=== PATIENT | male | born 1965 | race Caucasian/White ===

== ENCOUNTER 2016-05-25 10:56 | Day surgery (SDC) | payer OTHER ==
[2016-05-22 13:50] VITALS: BMI 31.1
[~2016-05-25 10:56] MED LIST: LACTATED RINGERS 1,000 ML IV SCH
[2016-05-25 11:16] VITALS: RESP 16; TEMP 98.9
[2016-05-25] MEDS ORDERED: LIDOCAINE 1% 20 ML VIAL (10MG/ML) FOR IV START SQ ONE (11:19)
[2016-05-25] MEDS ORDERED: PROPOFOL 10 MG/ML 20 ML VIAL IV ONE (12:34)
--- NOTE | 2016-05-25 12:54 | P.PCN ---
Date of Procedure: 05/25/16 Procedure(s) Performed: Brief history: Patient is a pleasant 51-year-old white male, scheduled for an elective upper endoscopy as well as colonoscopy as a part of evaluation of abdominal pain, postprandial diarrhea, abdominal bloating and occasional heartburn for the last 2-3 months duration. He denies any weight loss. Denies any rectal bleeding. Procedure performed: Esophagogastroduodenoscopy with biopsy Colonoscopy with biopsy Preoperative diagnosis: Abdominal pain, abdominal bloating Postprandial diarrhea Anesthesia: [facility] [place] Procedure: After informed consent was obtained from the patient was brought into the endoscopy unit and IV conscious sedation was administered by anesthesia under continuous monitoring. Initially upper endoscopy was done. The Olympus GF 160 video endoscope was inserted inserted into the mouth and esophagus intubated without any difficulty and was gradually advanced into the stomach and duodenum and carefully examined. The bulb and second part of the duodenum appeared normal. Biopsies were done from this area to rule out celiac disease. The scope was then withdrawn into the stomach adequately insufflated with air and upon careful examination the antrum had mild gastritis and biopsies were done from this area. The body, cardia and fundus appeared normal. The scope was then withdrawn into the esophagus. The GE junction was located at 40 cm to the incisors. there were 2 tongues of Anderson's appearing mucosa extending 5 m proximal to the GE junction and this was biopsied. Rest of the esophagus appeared normal. Patient tolerated the procedure well. At this time the patient continued to remain sedation. Initial digital rectal examination was normal. Olympus CF 160 video colonoscope was then inserted into the rectum and gradually advanced to the cecum without any difficulty. Careful examination was performed as the scope was gradually being withdrawn. The prep was excellent. The cecum, ascending colon, transverse colon, descending colon, sigmoid colon and rectum appeared normal. and biopsies were done from the ascending and descending colon to rule out microscopic/ collagenous colitis. Retroflexion was performed in the rectum and no lesions were noted. Patient tolerated the procedure well. Impression: 1. Upper endoscopy revealed mild antral gastritis and short segment Anderson's esophagus. 2. Colonoscopy was essentially within normal limits with no evidence of colitis or colorectal neoplasia. Recommendations: Findings of this examination were discussed with the patient as well as her family. He was advised to follow with the biopsy results. In the meantime he was told to use [id number] Imodium as needed for the postprandial diarrhea and abdominal discomfort. He can have a repeat screening colonoscopy in 10 years.
[2016-05-25 13:27] VITALS: BP 149/96; PULSE 72
== END 2016-05-25 13:36 | disposition home or self-care (01) ==
LOC: ORWHC2ENDO 10:56
PROVIDERS: ATTEND Internal Medicine Gastroenterology
DX: K21.0 Gastro-esophageal reflux disease with esophagitis (principal); K29.50 Unspecified chronic gastritis without bleeding; K59.00 Constipation, unspecified; I10 Essential (primary) hypertension; F17.200 Nicotine dependence, unspecified, uncomplicated; Z79.1 Long term (current) use of non-steroidal anti-inflammatories (NSAID); Z79.899 Other long term (current) drug therapy
CPT/HCPCS: 88305; 88342; 45380; 43239; J2704; 99153

== ENCOUNTER 2018-04-30 18:15 | Emergency (ER) | payer BC, OTHER ==
[2018-04-30] MEDS ORDERED: SODIUM CHLORIDE 0.9% 1,000 ML IV STA (19:03)
[2018-04-30] MEDS ORDERED: LORazepam 2 MG/ML INJ IV STA (19:03)
[2018-04-30] MEDS ORDERED: diphenhydrAMINE 50 MG/ML 1 ML VIAL IVP STA (19:04)
[2018-04-30 19:17] LABS: Basophils % (A) 1 %; Eosinophils # (A) 0.2 k/uL (0-0.7); Eosinophils % (A) 4 %; HCT 49.8 % (39.0-53.0); HGB 16.7 gm/dL (13.0-17.5); Lymphocytes # (A) 1.4 k/uL (1.0-4.8); Lymphocytes % (A) 24 %; MCH 32.6 pg (25.0-35.0); MCHC 33.6 g/dL (31.0-37.0); MCV 97.2 fL (80.0-100.0); Mean Platelet Volume 7.1; Monocytes # (A) 0.5 k/uL (0-1.0); Monocytes % (A) 8 %; Neutrophils # (A) 3.6 k/uL (1.3-7.7); Neutrophils % (A) 61 %; Platelet Count 236 k/uL (150-450); RBC 5.13 m/uL (4.30-5.90); RDW 12.6 % (11.5-15.5); WBC 5.9 k/uL (3.8-10.6)
[2018-04-30 19:25] LABS: INR 0.9 (<1.2); Partial Thromboplastin Time 22.8 sec (22.0-30.0); Prothrombin Time 9.8 sec (9.0-12.0)
[2018-04-30 19:44] LABS: ALT 53 U/L (21-72); AST 58 U/L (17-59); Albumin 4.6 g/dL (3.5-5.0); Alkaline Phosphatase 78 U/L (38-126); Amylase 44 U/L (30-110); Anion Gap 16 mmol/L; Blood Urea Nitrogen 25 mg/dL (9-20); Calcium 9.9 mg/dL (8.4-10.2); Carbon Dioxide 25 mmol/L (22-30); Chloride 99 mmol/L (98-107); Glucose 84 mg/dL (74-99); Lipase 56 U/L (23-300); Potassium 3.8 mmol/L (3.5-5.1); Sodium 140 mmol/L (137-145); Total Protein 7.7 g/dL (6.3-8.2)
[2018-04-30 20:12] VITALS: RESP 16
--- NOTE | 2018-04-30 20:36 | XR ---
EXAMINATION TYPE: XR chest 2V DATE OF EXAM: 04/30/2018 COMPARISON: NONE HISTORY: Short of breath TECHNIQUE: Frontal and lateral views of the chest are obtained. FINDINGS: Heart and mediastinum are normal. Lungs are clear. Diaphragm is normal. There are chest le ads. Bony thorax appears normal. IMPRESSION: Normal chest
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
[2018-04-30 21:00] LABS: Appearance,Urine Clear (Clear); Bilirubin,Urine Negative (Negative); Blood,Urine Negative (Negative); Color,Urine Yellow; Glucose,Urine (UA) Negative (Negative); Ketones,Urine Negative (Negative); Leukocyte Esterase,Urine Negative (Negative); Nitrite,Urine Negative (Negative); Protein,Urine Trace (Negative); Specific Gravity,Urine 1.013 (1.001-1.035); Urobilinogen,Urine <2.0 mg/dL (<2.0)
[2018-04-30 21:44] VITALS: BP 133/91; PULSE 90; TEMP 98.4
== END 2018-04-30 21:44 | disposition home or self-care (01) ==
LOC: EC 18:15
DX: R25.1 Tremor, unspecified (principal); T43.295A Adverse effect of other antidepressants, initial encounter; R06.02 Shortness of breath; K14.8 Other diseases of tongue; I10 Essential (primary) hypertension; F32.9 Major depressive disorder, single episode, unspecified; F17.200 Nicotine dependence, unspecified, uncomplicated; Z79.899 Other long term (current) drug therapy; Z91.013 Allergy to seafood
CPT/HCPCS: 99285; 96374; 96375; 96361; 36415; 80053; 82150; 83690; 84484; 85025; 85610; 85730; 81003; 71046; J2060; J1200

== ENCOUNTER → 2018-10-07 | Outpatient (CLI) | payer BC ==
--- NOTE | 2018-10-07 14:03 | MR ---
EXAMINATION TYPE: MR brain wo con DATE OF EXAM: 10/07/2018 COMPARISON: NONE HISTORY: Amnesia/memory impairment, recent fall injury hitting head per patient. TECHNIQUE: Multiplanar, multisequence imaging of the brain and brainstem is performed without IV cont rast. FINDINGS: Diffusion weighted images demonstrate no evidence of a recent infarct or other diffusion abnormality. There is no worrisome extraaxial fluid collection . There is mild ventricular sulcal prominence. Ther e are a few scattered tiny foci T2 hyperintensity seen throughout the white matter bilaterally. Appro ximately 10-13 scattered lesions are seen. Lesions are nonspecific in appearance and distribution. T2 Star weighted images show no suspicious intraparenchymal blood product. Midline structures demonstrate normal morphology. The craniocervical junction appears within normal limits. Normal vascular flow voids are present. There is mild mucosal thickening involving the inferi or frontal sinuses and mild/moderate mucosal thickening involving the ethmoid and maxillary sinuses b ilaterally, left greater than right. The globes are intact bilaterally. IMPRESSION: There is mild diffuse cerebral atrophy and chronic small vessel ischemic change along wit h chronic paranasal sinus disease.
== END | disposition home or self-care (01) ==
LOC: RADMRIMAIN 08:13
PROVIDERS: ATTEND Family Medicine
DX: G31.9 Degenerative disease of nervous system, unspecified (principal); I67.82 Cerebral ischemia
CPT/HCPCS: 70551

== ENCOUNTER → 2020-02-12 | Outpatient (CLI) | payer BC ==
[~2020-02-12] MED LIST changes: +IODINE/POTASS IOD (LUGOLS) BOTTLE TOPICAL ONE; -LACTATED RINGERS 1,000 ML IV SCH
--- NOTE | 2020-02-15 07:45 | NM ---
EXAMINATION TYPE: NM DatScan Brain SPECT DATE OF EXAM: 02/12/2020 COMPARISON: Correlation MRI 10/07/2018 HISTORY: 54-year-old male G20, Parkinson's disease, R25.9, R27.0 TECHNIQUE: 10 drops of Lugol's solution was administered 1 hour prior to injection as a thyroid bloc loren agent. After the administration of 4.33 mCi I-123 Ioflupane DaTscan. Images obtained 3 hours p ost injection. SPECT images of the brain were acquired with axial and coronal reconstructions. FINDINGS: There is a weak, comma-shaped appearance to the right corpus striatum and slight increase in backgrou nd activity. Satisfactory activity seen at the left corpus stratum. IMPRESSION: Slight reduction in activity within the right corpus striatum and slight increase in background activ ity. Findings may represent early changes in the setting of Parkinson's disease or a Parkinsonian syn drome.
== END | disposition home or self-care (01) ==
LOC: RADNMMAIN 10:58
PROVIDERS: ATTEND Psychiatry & Neurology Vascular Neurology
DX: R94.09 Abnormal results of other function studies of central nervous system (principal); G20 Parkinson's disease; R27.0 Ataxia, unspecified
CPT/HCPCS: 78803; A9584

== ENCOUNTER → 2021-10-27 | Outpatient (CLI) | payer BC ==
--- NOTE | 2021-10-27 15:12 | CT ---
EXAMINATION TYPE: CT brain wo con DATE OF EXAM: 10/27/2021 COMPARISON: HISTORY: Confusional State CT DLP: 1152.[address] of the brain was performed. The ventricles, basal cisterns and sulci overlying the cerebral convexities demonstrate mild enlargem ent. There is no evidence for intracranial hemorrhage or sulcal effacement. There is decreased attenuation about the periventricular white matter and deep white matter of both c erebral hemispheres, compatible with chronic small vessel ischemia. Differential diagnosis does inclu de demyelination. No mass effects are seen.No midline shift. Osseous calvarium is intact. If symptoms persist consider MRI. IMPRESSION: 1. Age related atrophic and chronic small vessel ischemic change without acute intracranial process s een at this time.
[2021-10-27 16:05] LABS: ALT 65 U/L (4-49); AST 97 U/L (17-59); African American GFR (CKD) >90 (>60 ml/min/1.73 sqM); Albumin 4.6 g/dL (3.5-5.0); Albumin/Globulin Ratio 1.7; Alkaline Phosphatase 78 U/L (38-126); Anion Gap 10 mmol/L; Blood Urea Nitrogen 11 mg/dL (9-20); Calcium 9.1 mg/dL (8.4-10.2); Carbon Dioxide 28 mmol/L (22-30); Chloride 103 mmol/L (98-107); Creatine Kinase 132 U/L (55-170); Globulin 2.7 g/dL; Glucose 110 mg/dL (74-99); Non-African American GFR(CKD) >90 (>60 ml/min/1.73 sqM); Sodium 141 mmol/L (137-145); Total Bilirubin 0.6 mg/dL (0.2-1.3); Total Protein 7.3 g/dL (6.3-8.2)
[2021-10-27 17:51] LABS: Basophils # (A) 0.1 k/uL (0-0.2); Basophils % (A) 1 %; Eosinophils # (A) 0.3 k/uL (0-0.7); Eosinophils % (A) 6 %; HCT 45.6 % (39.0-53.0); Lymphocytes # (A) 0.9 k/uL (1.0-4.8); Lymphocytes % (A) 19 %; MCH 33.9 pg (25.0-35.0); MCHC 32.8 g/dL (31.0-37.0); MCV 103.3 fL (80.0-100.0); Macrocytosis Slight; Mean Platelet Volume 7.9; Monocytes # (A) 0.4 k/uL (0-1.0); Monocytes % (A) 8 %; Neutrophils % (A) 64 %; Platelet Count 223 k/uL (150-450); RBC 4.41 m/uL (4.30-5.90); RDW 13.7 % (11.5-15.5); WBC 4.6 k/uL (3.8-10.6)
== END | disposition home or self-care (01) ==
LOC: RADCTMAIN 14:29
PROVIDERS: ATTEND Family Medicine
DX: G31.9 Degenerative disease of nervous system, unspecified (principal); I67.82 Cerebral ischemia
CPT/HCPCS: 70450; 80053; 82550; 84484; 85025

== ENCOUNTER → 2021-11-10 | Outpatient (CLI) | payer BC ==
--- NOTE | 2021-11-10 13:06 | MR ---
EXAMINATION TYPE: MR brain wo/w con DATE OF EXAM: 11/10/2021 COMPARISON: CT brain October 27, 2021. Prior MRI brain October 07, 2018 HISTORY: Amnesia TECHNIQUE: Multiplanar, multisequence images of the brain and brainstem is performed without and with IV contras t, utilizing 8.5 mL intravenous Gadavist . FINDINGS: Diffusion weighted images demonstrate no evidence of a recent infarct or other diffusion ab normality. Mild ventricular and sulcal prominence. Few scattered small foci of T2 hyperintensity are seen throughout the white matter bilaterally. Lesions are nonspecific in appearance and distribution. Possible incidental low right parietal venous angioma near axial image 11 and is stable in appearanc e. Midline structures demonstrate normal morphology. The craniocervical junction appears within normal limits. Post contrast images demonstrate no abnormal enhancement. The dural venous sinuses appear pa tent. Mild mucosal thickening inferior maxillary sinuses improved from recent CT mild to moderate muc osal thickening anterior ethmoid sinuses bilaterally fairly stable from recent CT. Globes are intact bilaterally. IMPRESSION: Mild diffuse age-related cerebral atrophy and chronic small vessel ischemic changes redem onstrated. No significant change from prior MRI. No abnormal enhancement noted. Improving paranasal s inus disease noted.
== END | disposition home or self-care (01) ==
LOC: RADMRIMAIN 12:06
PROVIDERS: ATTEND Family Medicine
DX: G31.9 Degenerative disease of nervous system, unspecified (principal); I67.82 Cerebral ischemia
CPT/HCPCS: 70553; A9585